=== PATIENT | female | born 1965 | race Caucasian/White ===

== ENCOUNTER → 2023-03-19 13:06 | Outpatient (REF) | payer OTHER, SELFPAY | LOC: DHCBS MAIN 13:06 | PROVIDERS: ATTENDING PHYSICIAN Nuclear Medicine Nuclear Cardiology; FAMILY PHYSICIAN Family Medicine | DX: R07.9 Chest pain, unspecified (principal); R06.02 Shortness of breath; R00.2 Palpitations; I49.3 Ventricular premature depolarization | CPT/HCPCS: 93306 ==

== ENCOUNTER 2024-06-26 07:23 | Emergency (ER) | payer OTHER, SELFPAY ==
[2024-06-26 07:25] VITALS: BP 114/76
--- NOTE | 2024-06-26 08:37 | ED.GENMED ---
History of Present Illness
General
Chief Complaint: DVT/Possible Blood Clot
Time Seen by Provider: 06/26/24 07:59
History of Present Illness
History of Present Illness:
58-year-old female presents to the emergency department for evaluation of right calf pain for the past 5 days. Denies any injuries or trauma. Has family history of DVT thus prompting her to come to the ED today. Has been using NSAIDs without
relief
Past History
Past History
ED Past Medical History: Other (Endometriosis) and Other (Chronic sinusitis)
ED Past Surgical History: and Orthopedic
Social History
Tobacco: Non-smoker
Alcohol: Occasional
Drug: None
Personal:
Living: with family
Employment: Employed (relief manager)
Review of Systems
Review of Systems
Allergies reviewed?: Yes
All Other Systems: ROS reviewed and negative except as documented in HPI and ROS
Phy Exam
Physical Exam
Physical Exam:
GEN: Well appearing, NAD, WDWN
HEENT: Oral mucosa moist, no scleral icterus
Cardiac: Regular rate
Lung: No respiratory distress, no tachypnea
MSK: No gross deformity or injuries. Right calf compartments are soft x 4 with no pain with passive stretch. No significant reproduced tenderness on exam. Normal range of motion of the right knee and right ankle
Skin: Good color, no pallor or jaundice, no rashes
Neuro: AO x3, moves all extremities freely
Psych: Calm, cooperative
Course
Orders/Labs/Results
Orders:
Orders
06/26/24 07:27
US Periph Venous LOWER Ext RT Urgent
Comment:
Reason For Exam: right calf with pain
Vital Signs
Initial and Last Documented VS:
Initial Vital Signs
Temp Pulse Resp BP Pulse Ox
98.0 F 96 16 114/76 98
06/26/24 07:25 06/26/24 07:25 06/26/24 07:25 06/26/24 07:25 06/26/24 07:25
Last Documented Vital Signs
Temp Pulse Resp BP Pulse Ox
98.0 F 96 16 114/76 98
06/26/24 07:25 06/26/24 07:25 06/26/24 07:25 06/26/24 07:25 06/26/24 07:25
MDM/Problems Addressed
MDM/Problems Addressed:
Ultrasound is unremarkable, unclear etiology but suspect this may be a lumbosacral radiculopathy given lack of reproduced tenderness at the site
*Critical Care Note
Total Time (30-74mins, 75-104mins- exclusive of procedures): Not Applicable
ED Attending Note
-
Portions of this chart may have been created with voice recognition software.� Occasional wrong word or��sound alike� substitutions may have occurred due to the inherent limitations of voice recognition software.
Discharge Plan
Departure
Patient Disposition: Home (Routine Discharge)
Date of Disposition: 06/26/24
Time of Disposition: 08:56
Patient with high blood pressure during this ER visit?: No
Discharge Problem:
Acute lumbar radiculopathy
Instructions: Radiculopathy of the neck and back (including sciatica)
Prescriptions:
No Action
cetirizine [Zyrtec] 10 MG tablet
10 mg PO DAILY
A Thru Z High Potency 1 EACH tablet
1 ea PO DAILY
acetaminophen 325 MG tablet
650 mg PO Q4HPRN PRN (Reason: FERREIRA, mild pain, or temp >100.4F) Qty: 30 0RF
Interventions
Interventions:
*Risk Screen - Suicide Last Done: 06/26/24 07:25
*Neglect/Abuse Screening Last Done: 06/26/24 07:25
*Nursing Disposition Last Done: 06/26/24 09:30
Discharge Date and Time
Discharge Date/Time: 06/26/24 09:31
Print Language: SWEDISH
== END 2024-06-26 09:31 | disposition home or self-care (01) ==
LOC: EMR 07:23
PROVIDERS: EMERGENCY PHYSICIAN Emergency Medicine; FAMILY PHYSICIAN Family Medicine
DX: M54.16 Radiculopathy, lumbar region (principal)
CPT/HCPCS: 99284; 93971